=== PATIENT | female | born 1985 | race Caucasian/White ===

== ENCOUNTER 2021-11-02 11:04 | Emergency (ER) | payer OTHER ==
[~2021-11-02] VITALS: Ht 175.3 cm; Wt 90.9 kg
[2021-11-02 11:12] VITALS: BP 192/108
--- NOTE | 2021-11-02 12:06 | PHYS DOC ---
Past Medical History Past Surgical History: Appendectomy General Adult EDM: Chief Complaint: UPPER EXTREMITY INJURY HPI: HPI: Patient is a 36 year old female who presents with left upper extremity pain. Patient states that when she opens the door to her dryer, it does not shut off. She states she was taking clothes out of the dryer, when it "caught [her] arm and twisted it." Initially, she states her pain was mostly in her left wrist and forearm, but now she has difficulty lifting her upper arm. She denies paresthesias, skin color changes, abrasion or laceration. Review of Systems: Review of Systems: Constitutional: Denies fever, chills or generalized weakness Eyes: Denies change in visual acuity, visual field deficits or discharge HENT: Denies ear pain, nasal congestion or sore throat Respiratory: Denies cough or shortness of breath Cardiovascular: Denies chest pain, palpitations or edema GI: Denies abdominal pain, nausea, vomiting, bloody stools or diarrhea : Denies dysuria or hematuria Musculoskeletal: See HPI Integument: Denies rash or other skin lesion Neurologic: Denies headache, focal weakness or sensory changes Heart Score: C/O Chest Pain: No Allergies: Allergies: Allergies Coded Allergies Type Severity Reaction Last Updated Verified No Known Drug Allergies 11/02/21 No Physical Exam: PE: Constitutional: Well developed, well nourished, no acute distress, non-toxic appearance. HENT: Normocephalic, atraumatic, bilateral external ears normal, nose normal. Eyes: EOMI, conjunctiva normal, no discharge. Neck: Normal range of motion, no stridor. Skin: Warm, dry, no erythema, no rash. Extremities: Mild anterior shoulder tenderness and distal forearm tenderness, no cyanosis, no clubbing, no edema, capillary refill less than 2 seconds, radial pulses 2+ and symmetrical, passive range of motion intact in major joints and left arm, active left arm abduction limited secondary to pain. Neurologic: Alert and oriented x4, banking manager strength 4/5 in left hand compared to 5/5 right hand secondary to pain, no focal deficits noted. Current Patient Data: Vital Signs: Vital Signs Date Time Temp Pulse Resp B/P (MAP) Pulse Ox O2 Delivery O2 Flow Rate FiO2 11/02/21 11:12 98.0 79 16 192/108 (136) 99 Room Air 98.0 Radiology/Procedures: Radiology/Procedures: PROCEDURE: Left hand, 3 views; left forearm, 2 views; left shoulder, 4 views. HISTORY: Pain. COMPARISON: None. FINDINGS: Left hand: 3 views of the left hand are obtained. There is no fracture, dislocation or subluxation. There is no radiodense foreign body. Left forearm: 2 views of the lentiform are obtained. There is no fracture, dislocation or subluxation. There is no radiodense foreign body. Left shoulder: 4 views left shoulder obtained. There is no fracture, dislocation or subluxation. IMPRESSION: No acute osseous finding. Electronically signed by: Vivien Cornelius MD (11/02/2021 12:31 PM) [id number] Course & Med Decision Making: Course & Med Decision Making Pertinent Labs and Imaging studies reviewed. (See chart for details) Patient is an otherwise healthy 36-year-old female who presents the emergency department for left upper extremity pain. Plain films obtained. No acute fracture dislocation seen on x-ray images today. Patient is advised to use [id number] NSAIDs for pain control. She was placed in a sling for comfort. Should she continue to have pain, orthopedic follow-up contact information was provided to her. Patient understands and is agreeable with discharge plan. Lindsay Disclaimer: Lindsay Disclaimer: This electronic medical record was generated, in whole or in part, using a voice recognition dictation system. Departure Departure Impression: Primary Impression: Contusion of multiple sites of left arm Qualified Codes: S40.022A - Contusion of left upper arm, initial encounter Additional Impression: Elevated blood pressure reading Disposition: HOME / SELF CARE / HOMELESS Condition: IMPROVED Referrals: NO PCP (PCP) EMERSON VERONICA Jr. DO Patient Instructions: Shoulder Pain, [id number] Additional Instructions: EMERGENCY DEPARTMENT GENERAL DISCHARGE INSTRUCTIONS Thank you for coming to [facility] Emergency Department (ED) today and trusting us with you care. We trust that you had a positive experience in our Emergency Department. If you wish to speak to the department management, you may call the director at . YOUR FOLLOW UP INSTRUCTIONS ARE FOLLOWS: 1. Follow up with your primary care doctor regarding your elevated blood pressure reading. If you do not have a primary doctor, please ask for a resource list of physicians or clinics that may be able to assist you with follow up care. 2. The emergency provider has interpreted your imaging studies, if any were ordered. The radiology renewals specialist also reviewed them. If there is a change in the findings, you will be notified in 48 hours when at all possible. 3. If a lab test or culture has been done, your results will be reviewed and you will be notified if you need a change in treatment. 4. Follow instructions verbalized to you and refer to the printouts if needed. ADDITIONAL INSTRUCTIONS AND INFORMATION: 1. Your care today has been supervised by a physician who is specially trained in emergency care. Many problems require more than one evaluation for a complete diagnosis and treatment. We recommend that you schedule your follow up appointment as recommended to ensure complete treatment of you illness or injury. If you are unable to obtain follow up care and continue to have a problem, or if your condition worsens, we recommend that you return to the ED. 2. We are not able to safely determine your condition over the phone nor are we able to give sound medical advice over the phone. For these safety reasons, if you call for medical advice we will ask you to come to the ED for further evaluation. 3. If you have any questions regarding these discharge instructions please call the ED at . SAFETY INFORMATION: In the interest of safety, wellness, and injury prevention; we encourage you to wear your seat belt, if you smoke; quite smoking, and we encourage family to use a protective helmet for bicycling and other sporting events that present an increased risk for head injury. IF YOUR SYMPTOMS WORSEN OR NEW SYMPTOMS DEVELOP, OR YOU HAVE CONCERNS ABOUT YOUR CONDITION; OR IF YOUR CONDITION WORSENS WHILE YOU ARE WAITING FOR YOUR FOLLOW UP APPOINTMENT; EITHER CONTACT YOUR PRIMARY CARE DOCTOR, THE PHYSICIAN WHOSE NAME AND NUMBER YOU WERE GIVEN, OR RETURN TO THE ED IMMEDIATELY. LEXA JACKSON Nov 02, 2021 12:06
[2021-11-02] MEDS ORDERED: KETOROLAC 60 MG/2 ML VIAL. IM ONE (12:15)
--- NOTE | 2021-11-02 12:33 | RAD ---
EXAM: Left hand, 3 views; left forearm, 2 views; left shoulder, 4 views. HISTORY: Pain. COMPARISON: None. FINDINGS: Left hand: 3 views of the left hand are obtained. There is no fracture, dislocation or subluxation. T here is no radiodense foreign body. Left forearm: 2 views of the lentiform are obtained. There is no fracture, dislocation or subluxation . There is no radiodense foreign body. Left shoulder: 4 views left shoulder obtained. There is no fracture, dislocation or subluxation. IMPRESSION: No acute osseous finding. Electronically signed by: Vivien Cornelius MD (11/02/2021 12:31 PM) [id number]
== END 2021-11-02 13:29 | disposition home or self-care (01) ==
LOC: ER 11:04
DX: S40.022A Contusion of left upper arm, initial encounter (principal); R03.0 Elevated blood-pressure reading, without diagnosis of hypertension; X50.9XXA Other and unspecified overexertion or strenuous movements or postures, initial encounter; Y93.89 Activity, other specified; Y92.89 Other specified places as the place of occurrence of the external cause; Y99.8 Other external cause status
CPT/HCPCS: 73030; 73090; 73130; 99283; A4565